=== PATIENT | female | born 1975 | race Caucasian/White ===

== ENCOUNTER → 2017-07-23 | Outpatient (CLI) | payer BC ==
[~2017-07-23] MED LIST: PREN1TAB39 PO
--- NOTE | 2017-07-23 10:55 | Diagnostic Imaging Report ---
PROCEDURE: MRI right joint lower extremity without contrast. TECHNIQUE: Multiplanar, multisequence non contrast-enhanced MRI of the right lower extremity was accomplished. INDICATION: Skiing injury with right knee pain. FINDINGS: There is moderate amount of right knee joint fluid. Posterior cruciate ligament is intact however there is complete disruption of the anterior cruciate ligament. Articular cartilage throughout the knee appears to be intact. Increased T2 signal is seen throughout the posterior horn of the medial meniscus without definite contact of the articular surface. Medial and lateral collateral ligamentous structures are intact. There is increased T2 signal present within the medial and lateral tibial plateaus indicating bone marrow contusion. No definite fracture line is identified. Tiny areas of abnormal signal seen in the subchondral marrow of the medial and lateral femoral condyles and without associated T2 signal. These likely represent represent areas of sclerosis and are nonacute in nature. Extensor mechanism is unremarkable. IMPRESSION: Findings are compatible with complete disruption of anterior cruciate ligament with bone marrow contusions involving medial and lateral tibial plateaus. Increased signal within the posterior horn of the medial meniscus appears to be contained within the substance without definite articular surface involvement and may represent myxoid degeneration although clinical correlation is recommended. No other acute internal derangement of the right knee is identified. Dictated by: Dictated on workstation # [id number]
== END ==
LOC: RAD 08:37
PROVIDERS: ATTEND Nurse Practitioner Family
DX: S83.241A Other tear of medial meniscus, current injury, right knee, initial encounter (principal); S80.02XA Contusion of left knee, initial encounter
CPT/HCPCS: 73721

== ENCOUNTER → 2018-01-17 | Outpatient (CLI) | payer BC ==
--- NOTE | 2018-01-17 11:57 | Diagnostic Imaging Report ---
The current study was also evaluated with a Computer Aided Detection (CAD) system. 3-D tomosynthesis was also performed and reviewed. INDICATION: Screening. Comparison made with prior examination of 02/23/2017 back to 05/07/2015. FINDINGS: The fibroglandular tissue is heterogeneously dense bilaterally. There is an unchanged well-circumscribed density in the upper-outer right breast. There are a few benign type calcifications. There is no new dominant mass, spiculated lesion or suspicious calcification identified. Impression: Category 2 benign ACR BI-RADS Category 2: Benign findings. Result letter will be mailed to the patient. Note: At least 10% of breast cancer is not imaged by mammography. Dictated by: Dictated on workstation # [id number]
== END ==
LOC: RAD 11:23
PROVIDERS: ATTEND Family Medicine
DX: Z12.31 Encounter for screening mammogram for malignant neoplasm of breast (principal)
CPT/HCPCS: 77067

== ENCOUNTER → 2019-03-14 | Outpatient (CLI) | payer BC ==
--- NOTE | 2019-03-14 11:41 | Diagnostic Imaging Report ---
INDICATION: Routine screening. COMPARISON: Comparison is made with prior mammograms from 01/17/2018 and 02/23/2017. 2-D and 3-D bilateral screening mammography was performed. The current study was also evaluated with a Computer Aided Detection (CAD) system. 3-D tomosynthesis was also performed and reviewed. FINDINGS: Both breasts remain heterogeneously dense, limiting the sensitivity of mammography. Circumscribed density in the posterior outer right breast is stable and consistent with benign etiology. No new mass or malignant-appearing microcalcifications are seen. Axillae are unremarkable. IMPRESSION: No mammographic features suspicious for malignancy are identified. ACR BI-RADS Category 2: Benign findings. Result letter will be mailed to the patient. Note: At least 10% of breast cancer is not imaged by mammography. Dictated by: Dictated on workstation # [id number]
== END ==
LOC: RAD 10:02
PROVIDERS: ATTEND Nurse Practitioner
DX: Z12.31 Encounter for screening mammogram for malignant neoplasm of breast (principal); Z01.419 Encounter for gynecological examination (general) (routine) without abnormal findings
CPT/HCPCS: 77067

== ENCOUNTER → 2021-03-30 | Outpatient (CLI) | payer BC ==
--- NOTE | 2021-03-30 11:53 | Diagnostic Imaging Report ---
Indication: Routine screening. Comparison is made with prior mammogram from 03/14/2019 and 01/17/2018. 2-D and 3-D bilateral screening mammography was performed with CAD. Both breasts are heterogeneously dense, limiting the sensitivity of mammography. Circumscribed nodule in the outer posterior right breast appears stable. No new mass or malignant-appearing microcalcifications are seen. Axillae are unremarkable. IMPRESSION: BI-RADS Category 2 No mammographic features suspicious for malignancy are identified. ACR BI-RADS Category 2: Benign findings. Result letter will be mailed to the patient. Note: At least 10% of breast cancer is not imaged by mammography. Dictated by: Dictated on workstation # [id number]
== END ==
LOC: RAD 09:00
PROVIDERS: ATTEND Family Medicine
DX: Z12.31 Encounter for screening mammogram for malignant neoplasm of breast (principal)
CPT/HCPCS: 77063; 77067

== ENCOUNTER 2021-05-07 05:36 | Outpatient (CLI) | payer BC ==
[~2021-05-07] VITALS: Ht 160 cm; Wt 69.9 kg
[2021-05-08] MEDS ORDERED: CALC600T91 PO (11:51)
[2021-05-08] MEDS ORDERED: MAGN400T39 PO (11:51)
[2021-05-08] MEDS ORDERED: MULT-593 PO (11:51)
[2021-05-08] MEDS ORDERED: FISH1CAP15 PO (11:51)
[2021-05-08] MEDS ORDERED: MV-M1TAB20 PO (11:51)
[2021-05-08] MEDS ORDERED: CETI10CA PO (11:51)
[2021-05-08] MEDS ORDERED: ELDE1CAP PO (11:51)
[2021-05-08] MEDS ORDERED: NAPR-1070 PO (11:51)
[2021-05-08] MEDS ORDERED: L.AC1CAP6 PO (11:51)
== END 2021-05-08 13:47 | disposition home or self-care (01) ==
LOC: PREOP 05:36
PROVIDERS: ATTEND Internal Medicine
DX: Z01.818 Encounter for other preprocedural examination (principal)

== ENCOUNTER 2021-05-15 08:22 | Day surgery (SDC) | payer BC ==
--- NOTE | 2021-05-07 08:43 | HISTORY AND PHYSICAL ---
DATE OF SERVICE: COLONOSCOPY HISTORY AND PHYSICAL DATE OF ADMISSION: . HISTORY OF PRESENT ILLNESS: The patient is a 46-year-old white female referred by Dr. Patterson for her first screening colonoscopy. She is deemed to be of average risk as she is not aware of any family history for colon cancer. She reports no bright red blood per rectum, melena, bowel habit change. Occasional upper quadrant abdominal discomfort with no history of diverticulitis. PAST MEDICAL HISTORY: Significant for allergic rhinitis. MEDICATIONS: she takes Zyrtec and Flonase. She is on no other prescription medication. ALLERGIES: She reports no known drug allergies. PAST SURGICAL HISTORY: She had a 11 years ago and hernia presumed inguinal surgery as a child. SOCIAL HISTORY: She is employed as a massage therapist, reports 2 to 3 beers per week in regard to alcohol consumption and no past smoking history. FAMILY HISTORY: Father is living at the age 66 with no medical problems. Mother is living at the age of 65 with history of emphysema due to tobacco consumption. She has two sisters, one who has history of thyroid problems, she does not know whether this is hyper or hypothyroidism. REVIEW OF SYSTEMS: CONSTITUTIONAL: Denies night sweats, chills, fever, change in weight. CARDIOVASCULAR: Denies chest pain, orthopnea, PND, pedal edema. PULMONARY: Denies cough, wheezing or shortness of breath. GASTROINTESTINAL: As noted in the HPI. PHYSICAL EXAMINATION: GENERAL: Reveals a white female, appears to be in no acute distress. HEENT: Unremarkable. Sclerae nonicteric. VITAL SIGNS: Blood pressure 120/72, heart rate 72 and regular. CHEST: Clear. CARDIOVASCULAR: Reveals a regular rate and rhythm without murmur, S3 or S4. ABDOMEN: Soft, supple without mass, organomegaly or tenderness. EXTREMITIES: Reveal no cyanosis, clubbing or edema. ASSESSMENT AND PLAN: The patient is set up for her first screening colonoscopy. Prep instructions with the Suprep kit were given and questions were answered. Electronic medical record was reviewed. As always, I thank you for your referrals. Job ID: [id number] DocumentID: [id number] Dictated Date: 05/05/2021 16:50:42 Wire Brusher Date: 05/05/2021 17:02:39 Dictated By: DOROTHEA HAMPTON MD
[~2021-05-15] VITALS: Ht 160 cm; Wt 69.9 kg
[~2021-05-15 08:22] MED LIST changes: +CALC600T91 PO; +CETI10CA PO; +ELDE1CAP PO; +FISH1CAP15 PO; +L.AC1CAP6 PO; +MAGN400T39 PO; +MULT-593 PO; +MV-M1TAB20 PO; +NAPR-1070 PO
[2021-05-15] MEDS ORDERED: LACTATED RINGERS 1,000 ML IV STA (08:31)
[2021-05-15] MEDS ORDERED: LACTATED RINGERS 1,000 ML IV ONE (08:36)
[2021-05-15 08:45] VITALS: BP 119/82
[2021-05-15] MEDS ORDERED: LIDOCAINE JELLY 2% 6 ML SYRINGE MM PRN (08:45)
--- NOTE | 2021-05-15 09:10 | Pre-Op Note & Conscious Sedat ---
Pre-Operative Progress Note H&P Reviewed The H&P was reviewed, patient examined and no changes noted. Date H&P Reviewed: May 15, 2021 Time H&P Reviewed: 09:10 Conscious Sedation Pre-Proced ASA Score 2 For ASA 3 and 4: Consider anesthesia and medical clearance. Also, for patients with a history of failed moderate sedation consider anesthesia. Airway Lungs Heart ASA score ASA 1: a normal healthy patient ASA 2: a patient with a mild systemic disease (mid diabetes, controlled hypertension, obesity ASA 3: a patient with a severe systemic disease that limits activity (angina, COPD, prior Myocardial infarction) ASA 4: a patient with an incapacitating disease that is a constant threat to life (CHF, renal failure) ASA 5: a moribund patient not expected to survive 24 hrs. (ruptured aneurysm) ASA 6: a declared brain- patient whose organs are being harvested. For emergent operations, add the letter E after the classification Mallampati Classification Grade 2 Sedation Plan Analgesia, Amnesia, Plan communicated to team members, Discussed options with patient/fam, Discussed risks with patient/fam The patient is an appropriate candidate to undergo the planned procedure, sedation, and anesthesia. The patient immediately re-assessed prior to indication. DOROTHEA HAMPTON MD May 15, 2021 09:10
[2021-05-15] MEDS ORDERED: PROPOFOL INJECTION 50 ML IV ONE (09:59)
--- NOTE | 2021-05-15 10:33 | Anesthesia-General Post-Op ---
MAC Patient Condition Mental Status/LOC: Same as Preop Cardiovascular: Satisfactory Nausea/Vomiting: Absent Respiratory: Satisfactory Pain: Controlled Complications: Absent Post Op Complications Complications None Follow Up Care/Instructions Patient Instructions None needed. Anesthesiology Discharge Order Discharge Order Patient is doing well, no complaints, stable vital signs, no apparent adverse anesthesia problems. No complications reported per nursing. CAROLYNE AARON CRNA May 15, 2021 10:33
[2021-05-15 10:35] VITALS: BP 101/64
[2021-05-15 10:40] VITALS: BP 106/66
[2021-05-15 11:10] VITALS: BP 106/66
[2021-05-15 11:17] VITALS: BP 106/66
--- NOTE | 2021-05-15 13:12 | OPERATIVE REPORT ---
DATE OF SERVICE: COLONOSCOPY SUMMARY INDICATION FOR THE PROCEDURE: Screening colonoscopy. DESCRIPTION OF PROCEDURE: The patient was placed in the left lateral decubitus position. Prior to undergoing colonoscopy, digital rectal evaluation was performed. Anal sphincter tone was normal and the perianal reflexes intact. No abnormalities were noted on digital inspection of anal canal or distal rectal vault. The colonoscope was then inserted into the rectum and under direct visualization advanced to the cecum. The cecum was identified by identification of the ileocecal valve and cecal strap. Photographic documentation was obtained. Careful inspection was made as the endoscope was withdrawn. The patient tolerated the procedure well. Quality of prep was good. FINDINGS: No evidence for internal or external hemorrhoids. The rectum, sigmoid colon, descending colon, transverse colon, ascending colon, and cecum were unremarkable with no evidence for neoplasia, diverticular disease or other abnormality. ASSESSMENT: Normal colonoscopy to the cecum under good prep condition. As the patient is not aware of any family history for colon cancer, I would advocate consideration for repeat screening colonoscopy in 10 years. I thank you for the referral of this pleasant lady. Job ID: [id number] DocumentID: [id number] Dictated Date: 05/15/2021 10:39:07 Production Administrator Date: 05/15/2021 13:12:21 Dictated By: DOROTHEA HAMPTON MD
== END 2021-05-15 11:30 | disposition home or self-care (01) ==
LOC: ENDO 08:22
PROVIDERS: ATTEND Internal Medicine
DX: Z12.11 Encounter for screening for malignant neoplasm of colon (principal); J30.9 Allergic rhinitis, unspecified; Z79.899 Other long term (current) drug therapy
CPT/HCPCS: 84703

== ENCOUNTER → 2022-04-12 | Outpatient (CLI) | payer BC ==
--- NOTE | 2022-04-12 11:56 | Diagnostic Imaging Report ---
INDICATION: Routine screening. COMPARISON: 03/30/2021 and 03/14/2019. TECHNIQUE: 2D and 3D bilateral screening mammography was performed with CAD. FINDINGS: Both breasts are heterogeneously dense, limiting the sensitivity of mammography. A benign-appearing nodule in the outer right breast is stable. No new mass or malignant-appearing microcalcifications are seen. The axillae are unremarkable. IMPRESSION: No mammographic features suspicious for malignancy are identified. ACR BI-RADS Category 2: Benign findings. Result letter will be mailed to the patient. Note: At least 10% of breast cancer is not imaged by mammography. Dictated by: Dictated on workstation # [id number]
== END ==
LOC: RAD 08:40
PROVIDERS: ATTEND Nurse Practitioner Family
DX: Z12.31 Encounter for screening mammogram for malignant neoplasm of breast (principal)
CPT/HCPCS: 77063; 77067

== ENCOUNTER → 2022-09-29 | Outpatient (CLI) | payer BC ==
--- NOTE | 2022-09-29 11:25 | Diagnostic Imaging Report ---
PROCEDURE: Pelvic comp/transvaginal sonogram. TECHNIQUE: Complete transabdominal and transvaginal pelvic ultrasound was performed. In addition, limited pelvic Doppler was performed. INDICATION: Dysfunctional uterine bleeding. Patient has a family history of ovarian carcinoma. Uterus is anteverted measuring 8.3 x 4.2 x 5.2 cm. Endometrium is 3 mm in thickness. Myometrium is somewhat heterogeneous. There is a rounded heterogeneous area in the mid uterus approximately 3 cm in size, perhaps a fibroid. Right ovary measures 1.4 x 1.7 x 1.6 cm, left ovary measures 2.9 x 2.1 x 3.0 cm. There may be some punctate calcifications in the ovaries. Ovaries contain small follicles. There is blood flow to the ovaries. No free fluid is detected. IMPRESSION: 1. Probable 3 cm uterine fibroid. No other significant abnormality is detected. Dictated by: Dictated on workstation # [id number]
== END ==
LOC: RAD 09:49
PROVIDERS: ATTEND Surgery
DX: N93.8 Other specified abnormal uterine and vaginal bleeding (principal)
CPT/HCPCS: 76830; 76856